=== PATIENT | female | born 1980 | race Caucasian/White ===

== ENCOUNTER 2023-03-27 10:06 | Emergency (ER) | payer MEDICAID ==
[~2023-03-27] VITALS: Ht 163.8 cm; Wt 83.6 kg
[~2023-03-27 10:06] MED LIST: AZIT250T PO
[2023-03-27 11:30] VITALS: BP 117/78; PULSE 81; RESP 18; TEMP 98.3; O2SAT 97
[2023-03-27] MEDS ORDERED: dexamethasone sod phosphate 10mg/ml inj IM STA (12:06)
--- NOTE | 2023-03-27 12:57 | NUR ---
viewed and agree with above assessment. pt in stable condition.
== END 2023-03-27 13:08 | disposition home or self-care (01) ==
LOC: ER 10:06
DX: L23.7 Allergic contact dermatitis due to plants, except food (principal); R06.02 Shortness of breath; Z86.14 Personal history of Methicillin resistant Staphylococcus aureus infection; Z88.0 Allergy status to penicillin; Z88.2 Allergy status to sulfonamides; Z88.6 Allergy status to analgesic agent; Z79.899 Other long term (current) drug therapy
CPT/HCPCS: 96372; 99283; J1100